=== PATIENT | female | born 1985 | race American Indian/Alaskan Native ===

== ENCOUNTER 2020-08-15 13:48 | Emergency (ER) | payer SELFPAY ==
[2020-08-15] MEDS ORDERED: ZIPRASIDONE MESYLATE 20 MG VIAL IM ONE ×2 (13:55)
[2020-08-15] MEDS ORDERED: WATER FOR INJ Sterile (PF) 10 ML ONE (13:55)
[2020-08-15] MEDS ORDERED: LORazepam 2 MG/ML VIAL ONE (13:57)
[2020-08-15] MEDS ORDERED: LORazepam 2 MG/ML VIAL IV ONE (14:01)
[2020-08-15 14:30] LABS: Bacteria,Urine 1+ /HPF (Negative); Bilirubin,Urine NEG (Negative); Blood,Urine SM (Negative); Color,Urine Yellow (Yellow); Mucus,Urine 3+ /HPF; Protein,Urine <15 mg/dL mg/dL (Negative); Urobilinogen,Urine < 2.0 mg/dL (<2.0)
[2020-08-15 15:02] LABS: Basophils % (Auto) 0.2 % (0.0-1.8); Eosinophils # (Auto) 0.1 K/mm3 (0.0-0.4); Eosinophils % (Auto) 1.4 % (0.0-4.3); Hematocrit 33.7 % (30.3-42.9); Hemoglobin 11.4 gm/dl (10.1-14.3); Lymphocytes % (Auto) 47.1 % (13.4-35.0); Mean Corpuscular HGB Conc 34 % (30-34); Mean Corpuscular Volume 87 fl (79-97); Monocytes # (Auto) 0.3 K/mm3 (0.0-0.8); Monocytes % (Auto) 8.4 % (0.0-7.3); Platelet Count 173 K/mm3 (140-440); Red Blood Count 3.89 M/mm3 (3.65-5.03); Red Cell Distribution Width 16.1 % (13.2-15.2)
[2020-08-15 15:05] LABS: Amphetamine Screen,Urine Negative; Benzodiazepines Screen,Urine Negative; Cannabinoid Screen,Urine Negative; Cocaine Screen,Urine Negative; Methadone Screen,Urine Negative; Opiate Screen,Urine Negative
[2020-08-15 15:21] LABS: Blood Urea Nitrogen 10 mg/dL (7-17); Calcium 9.1 mg/dL (8.4-10.2); Hemolysis Index 5
[2020-08-15 15:42] LABS: BUN/Creatinine Ratio 14
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
[2020-08-16] MEDS ORDERED: ZIPRASIDONE MESYLATE 20 MG VIAL IM ONE ×4 (01:15→09:44)
[2020-08-16] MEDS ORDERED: WATER FOR INJ Sterile (PF) 10 ML IM ONE (09:44)
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
[2020-08-16] MEDS: HALOPERIDOL 2 MG TAB PO SCH ×2 (13:17→22:49)
[2020-08-16] MEDS ORDERED: diphenhydrAMINE 50 MG/ML VIAL ONE (13:48)
[2020-08-16] MEDS ORDERED: LORazepam 2 MG/ML VIAL ONE (13:48)
[2020-08-16] MEDS: VALPROIC ACID 250 MG CAP PO SCH ×2 (13:52→22:52)
[2020-08-16] MEDS ORDERED: LORazepam 2 MG/ML VIAL IM ONE (13:55)
[2020-08-16] MEDS ORDERED: diphenhydrAMINE 50 MG/ML VIAL IV ONE (13:56)
[2020-08-17 08:22] VITALS: BP 119/84
[2020-08-17] MEDS: VALPROIC ACID 250 MG CAP PO SCH (09:26)
[2020-08-17] MEDS: HALOPERIDOL 2 MG TAB PO SCH (09:30)
[2020-08-17] MEDS ORDERED: PALIPERIDONE PALMITATE 234 MG/1.5 ML SYRINGE IM ONE ×2 (10:10→11:24)
--- NOTE | 2020-08-17 10:10 | Progress Note ---
Subjective - Reason for Consult Consult date: 08/17/20 Reason for consult: MHE Requesting physician: DOM BHATT - Chief Complaint Chief complaint: Psych Progress Patient seen this AM, has been compliant with medications, no behabioral disturbances seen or noted. Patient also appears logical, reports trying to communicate with her mom but mom not wanting to speak to her, patient denies homicidal thoughts. Will administer IM Invega, last short was dated 07/04/2020 and discharge outpt for F/U REVIEW OF SYSTEMS Constitutional: Negative for weight loss ENT: Negative for stridor Respiratory: Negative for cough or hemoptysis All other systems reviewed and are negative MENTAL STATUS EXAMINATION General Appearance and Behavior: Age appropriate, poor good hygiene, wearing appropriate clothes, lying in bed, good eye contact, cooperative with questioning. Cooperation: Participating/engaged Psychomotor Behavior: unremarkable and within normal limits Mood: good Affect and affective range: congruent with mood Thought Process: logical Thought Content: Logical within reality Speech: Normal volume, Regular rate and rhythm Suicidal Ideation: Denies SI Homicidal Ideation: Denies Homicidal thoughts Impulse Control: unimpaired Insight and Judgment: unimpaired Memory: Normal Attention: Normal Orientation: Alert, oriented, anxious, Diagnoses: Assessment and Plan - Psychiatric problem (1) Schizoaffective disorder Current Visit: Yes Status: Acute Treatment Plan Attempted tiwce to call mom at [phone] to discuss discharge plans and no response. MEDICATIONS: Will administer Invega shot and recommend outpt F/U Risks, benefits and alternatives of medications discussed with the patient, questions answered and consent obtained from patient. PSYCHOTHERAPY: Supportive psychotherapy provided MEDICAL: Per primary team DELIRIUM PRECAUTIONS: Please re-orient patient frequently, keep lights on during the day, and minimize benzodiazepines and opiates as these medications could worsen patient's confusion. 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 Please contact with any questions and/or concerns. Mental Status Exam - Vital signs Last Vital Signs Temp 98.0 F 08/17/20 08:21 Pulse 66 08/17/20 08:21 Resp 20 08/17/20 08:21 BP 119/84 08/17/20 08:21 Pulse Ox 100 08/17/20 08:21 Assessment and Plan - Patient Problems (1) Schizoaffective disorder Current Visit: Yes Status: Acute
== END 2020-08-17 12:52 | disposition home or self-care (01) ==
LOC: ED 13:48
DX: F25.9 Schizoaffective disorder, unspecified (principal); F17.200 Nicotine dependence, unspecified, uncomplicated; Z79.899 Other long term (current) drug therapy
CPT/HCPCS: 36415; 80048; 80307; 81001; 84703; 85025; 87086; 96372; 96374; 99284; J2060; J3486; 80320; G0480; J1200